=== PATIENT | male | born 1990 | race African-American/Black ===

== ENCOUNTER 2019-01-21 15:13 | Emergency (ER) | payer OTHER ==
[~2019-01-21] VITALS: Ht 180.3 cm; Wt 97.6 kg
[2019-01-21 15:14] VITALS: BP 136/82
--- NOTE | 2019-01-21 16:11 | REP ---
Clinical: Medial sided pain. Technique: AP, lateral, bilateral oblique views of the left foot. Findings: Osseous structures, joint spaces, and surrounding soft tissues appear normal. No acute fracture or dislocation. No obvious pathology by radiographic evaluation. The surrounding soft tissues are unremarkable. Impression: No acute fracture dislocation. No obvious abnormality by radiographic evaluation. Electronically Signed by Kalia Knapp MD 01/21/2019 04:03 P
[2019-01-21] MEDS ORDERED: IBUP-1022 PO (17:13)
== END 2019-01-21 17:23 | disposition home or self-care (01) ==
LOC: M ED 15:13
DX: M79.672 Pain in left foot (principal)